=== PATIENT | female | born 1965 | race African-American/Black ===

== ENCOUNTER → 2019-05-30 | Outpatient (CLI) | payer OTHER ==
[~2019-05-30] MED LIST: APAP500 PO; ATIVAN1 MG; LOSARTAN POTAS100 MG PO; MEDROLDOSEPACK PO; PANTOPRAZOLE SO40 M1 PO; ROBAXIN 750 MG750 M1 PO; SYSTANE BALANCE10 ML OP; VITAMIN D2000 UNIT PO; ZPAK PO; [UNRECOGNIZED DRUG - OTHER] TP
== END ==
LOC: M.MRI 11:19
DX: S83.242A Other tear of medial meniscus, current injury, left knee, initial encounter (principal); S83.422A Sprain of lateral collateral ligament of left knee, initial encounter; M71.22 Synovial cyst of popliteal space [Baker], left knee; M17.12 Unilateral primary osteoarthritis, left knee; X58.XXXA Exposure to other specified factors, initial encounter; Y93.89 Activity, other specified; Y92.89 Other specified places as the place of occurrence of the external cause; Y99.8 Other external cause status

== ENCOUNTER → 2019-07-28 | Outpatient (CLI) | payer OTHER ==
[~2019-07-28] VITALS: Ht 170.2 cm; Wt 89.4 kg
[~2019-07-28] MED LIST changes: +AMLODIPINE BESY10 MG PO; +APPLE CIDER VI300 MG PO; +CELEXA 20 MG TA20 MG PO; +DIPHENHYDRAMINE25 M1 PO; +FLONASE 0.05%50 MCG NASAL; +HAIR, SKIN & N1 EAC2 PO; +HYDROCHLOROTHIA25 M2 PO; +HYDROCODON-ACE1 EAC7 PO; +LIPITOR10 MG PO; +MELOXICAM15 MG PO; +MICARDIS40 MG PO; +PROPRANOLOL 1010 M1 PO; +REFRESH RELIEVA10 M1 OPHTHALMIC; +ULTRAM 50MG TAB50 MG PO; -VITAMIN D2000 UNIT PO; +VITAMIN D34000 UNIT PO; -[UNRECOGNIZED DRUG - OTHER] TP; +[UNRECOGNIZED DRUG - SUPPLY] TOP
[2019-07-28 09:31] LABS: HEMOGLOBIN 15.7 gm/dL (12.0-15.0); MCH 29.1 pg (26.0-34.0); MCV 83.1 fL (80.0-100.0); RBC 5.41 mil/uL (4.20-5.00); RDW-CV 13.9 % (10.5-14.5); WBC 6.9 thou/uL (4.0-11.0)
[2019-07-28 09:44] LABS: ALBUMIN 4.1 g/dL (3.4-5.0); CALCIUM 8.9 mg/dL (8.5-10.1); CREATININE 0.8 mg/dL (0.6-1.3); POTASSIUM 4.2 mmol/L (3.5-5.1); TOTAL BILIRUBIN 0.4 mg/dL (<0.1-1.0); TOTAL PROTEIN 8.1 g/dL (6.4-8.2)
[2019-07-28 11:22] LABS: URINE BILIRUBIN NEGATIVE (Negative); URINE BLOOD NEGATIVE (Negative); URINE CLARITY CLEAR; URINE COLOR YELLOW; URINE GLUCOSE-RANDOM NEGATIVE (Negative); URINE KETONES NEGATIVE (Negative); URINE LEUKOCYTES-REFLEX NEGATIVE (Negative); URINE NITRITE-REFLEX NEGATIVE (Negative); URINE PROTEIN NEGATIVE (Negative); URINE UROBILINOGEN 0.2 E.U./dl (0.2-1.0)
--- NOTE | 2019-07-28 16:42 | EKG ---
[place] [address] ELECTROCARDIOGRAM REPORT Name: NEVILLE SCHMIDT Room: PRE IN [facility]#: [id number] Admission: Attend Phys: Fabio Chambers Discharge: Date of : 63 Date of Service: 07/28/19941 Report #: [id number] THIS REPORT FOR: //name// [facility] Test Date: 2019-07-28 Test Time: 09:42:54 Pat Name: NEVILLE BELLE Department: Room: Gender: F [employer]er: : 1965 Requested By: Chris Jenkins Order Number: [id number] Lashawn MD: Moy Velasquez Measurements Intervals [place] Rate: 69 P: 22 DC: 145 QRS: -26 QRSD: 83 T: 0 QT: 380 QTc: 407 Interpretive Statements Sinus rhythm Borderline left axis deviation Possible anteroseptal infarct, old No previous ECG available for comparison Electronically Signed On 07-28-2019 16:41:03 CDT by Moy Velasquez [email or web address] <ELECTRONICALLY SIGNED> By: Moy Velasquez MD, [facility] 07/28/19 1641 D: [id number] 1 Moy Velasquez MD, FACC /EPI
== END ==
LOC: M.LAB 08:00 → M.PRE 08-09 07:04 → EDSTATUS 08-09 09:02 → M.PRE 08-09 14:42
PROVIDERS: Orthopaedic Surgery
DX: M17.9 Osteoarthritis of knee, unspecified (principal); Z96.659 Presence of unspecified artificial knee joint

== ENCOUNTER 2019-11-22 07:32 | Inpatient (IN) | payer OTHER ==
[2019-11-16 10:44] LABS: HEMOGLOBIN 15.5 gm/dL (12.0-15.0); MCH 28.8 pg (26.0-34.0); MCHC 34.4 g/dL (28.0-37.0); MCV 83.7 fL (80.0-100.0); MPV 8.5 fl. (7.2-11.1); RBC 5.38 mil/uL (4.20-5.00); RDW-CV 14.4 % (10.5-14.5); WBC 8.7 thou/uL (4.0-11.0)
[2019-11-16 10:49] LABS: PROTIME 10.7 Seconds (9.20-11.50)
[2019-11-16 10:54] LABS: ALBUMIN 4.6 g/dL (3.4-5.0); CALCIUM 9.3 mg/dL (8.5-10.1); CREATININE 0.8 mg/dL (0.6-1.3); POTASSIUM 3.8 mmol/L (3.5-5.1); TOTAL BILIRUBIN 0.7 mg/dL (<0.1-1.0); TOTAL PROTEIN 8.6 g/dL (6.4-8.2)
[2019-11-16 10:59] LABS: URINE BILIRUBIN NEGATIVE (Negative); URINE BLOOD NEGATIVE (Negative); URINE CLARITY CLEAR; URINE COLOR YELLOW; URINE GLUCOSE-RANDOM NEGATIVE (Negative); URINE KETONES NEGATIVE (Negative); URINE LEUKOCYTES-REFLEX NEGATIVE (Negative); URINE NITRITE-REFLEX NEGATIVE (Negative); URINE PROTEIN NEGATIVE (Negative); URINE UROBILINOGEN 0.2 E.U./dl (0.2-1.0)
[~2019-11-22] VITALS: Ht 170.2 cm; Wt 89.4 kg
[~2019-11-22 07:32] MED LIST changes: +ACETAMINOPHEN500 M1 PO; -APAP500 PO; +VITAMIN D3100 MCG PO; -VITAMIN D34000 UNIT PO
[2019-11-22 09:30] VITALS: BP 111/64
--- NOTE | 2019-11-22 12:07 | EKG ---
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
[2019-11-22 15:00] VITALS: BP 95/59
--- NOTE | 2019-11-22 17:33 | NUR ---
PATIENT CAME TO THE FLOOR AT 1420 SHE HAD THE POLAR PACK TEDS AND FOOT PUMPS IN USE. HOB UP 30 DEGREES. SHE WAS COMPLAINING OF SOME PAIN BUT STATED THAT IT WAS TOLERABLE. SHE WAS FALLING ASLEEP WHILE TALKING AND I TOLD HER SHE NEEDED TO REST FOR A LITTLE WHILE. SHE IS ALERT AND ORIENTED AND THE DRESSING TO THE LEFT KNEE IS CLEAN DRY AND INTACT. CMS POSITIVE IN THE LEFT EXTREMITY. THE HEMOVAC TO THE KNEE IS NOT COMPRESSED AND THE DR. DOES NOT WANT IT COMPRESSED. I LEFT THE TOWEL UNDER HER KNEE FOR 2 HOURS ORDERED. SHE HAS BEEN UP WITH A WALKER TO THE [facility] X 2 AND IS VOIDING FREELY. SHE HAS BEEN VERY CONCERNED THAT SHE IS GOING TO GET INTO ALOT OF PAIN AND HAS BEEN WANTING HER PAIN MEDICATIONS GIVEN FREQUENTLY. I HAVE ADMINISTERED MORPHINE AND HYDROCODONE REQUESTED. I DID UPDATE THE BOARD TO WHEN HER NEXT PAIN MED IS DUE. NO DISTRESS NOTED THIS SHIFT. IV PATIENT AND FLUIDS INFUSING ORDERED. IS IN THE ROOM WITH HER UNTIL 7PM.
[2019-11-22 20:18] VITALS: BP 138/82
[2019-11-22 22:42] VITALS: BP 121/61
[2019-11-22 22:43] VITALS: BP 121/61
[2019-11-23] VITALS (7 sets, daily range): BP systolic 99–149; BP diastolic 50–78
--- NOTE | 2019-11-23 04:25 | NUR ---
PT A&OX4, ON 3L NC, VSS, CPM THERAPY USED, HEMO VAC IN PLACE, PAIN MEDS REQUESTED AND GIVEN ORDERED. ASSESSMENTS AND HOURLY ROUNDINGS COMPLETE. WILL CONTINUE WITH PLAN OF CARE.
[2019-11-23 05:05] LABS: HEMATOCRIT 36.3 % (37.0-47.0); HEMOGLOBIN 12.4 gm/dL (12.0-15.0)
--- NOTE | 2019-11-23 17:25 | NUR ---
PT.LIVES WITH HER . HE IS TAKING OFF WORK TO BE WITH HER FOR ABOUT 5 DAYS. THEY LIVE IN AN APT.THAT HAS ABOUT 14 STEPS TO GET UP TO APT. THERE IS A LANDING AFTER THE FIRST 7 STEPS. SHE HAS A FWW THAT WILL BRING TO HOSPITAL FOR THERAPY TO ADJUST AND STOOL RISER.SHE IS INDEPENDENT AT HOME. HAS TROUBLE WITH V[employer]IG[employer] AND FELL ABOUT 2 WEEKS AAGO. SHE WOULD LIKE TO USE [employer] AT DISCHARGE. CM CALLED IN XARELTO TO HER PHARMACY-[facility]. COPAY IS $46. SHE SAID IT IS HIGH BUT WILL PAY FOR IT. SHE PLANS TO DISCHARGE TOMORROW PENDING PROGRESS IN THERAPY. WILL FAX REFERRAL TO [facility].
--- NOTE | 2019-11-23 17:39 | NUR ---
PATIENT UP WITH THERAPY THIS SHIFT, GAIT BELT AND WALKER. POLAR YASEMIN IN PLACE TO LEFT KNEE. HEMOVAC DC'D THIS AM PER PROTOCOL. IV RESTARTED TO LEFT HAND THIS EVENING DUE TO LEAKING. PATIENT STATED THAT VICODIN AND OXY IR WERE NOT WORKING AND REQUESTED MORPHINE THIS SHIFT. PATIENT NOTIFIED THAT PO MEDS TO BE TRIED FIRST, PATIENT WAS GIVEN DOSE OF MORPHINE THIS EVENING. TOLERATING DIET.
[2019-11-24 04:01] LABS: HEMATOCRIT 32.2 % (37.0-47.0); HEMOGLOBIN 11.1 gm/dL (12.0-15.0)
--- NOTE | 2019-11-24 04:36 | NUR ---
PT A&OX4, ON ROOM AIR, VSS, PT UP WITH ASSIST, CPM THERAPY COMPLETED. PAIN MEDS REQUESTED AND GIVEN ORDERED. HOURLY ROUNDINGS COMPLETE. WILL CONTINUE TO MONITOR.
[2019-11-24 05:57] VITALS: BP 117/53
[2019-11-24 07:40] VITALS: BP 121/71
[2019-11-24 10:37] VITALS: BP 128/65
[2019-11-24] MEDS ORDERED: PERCOCET 5-3251 EACH PO (10:46)
[2019-11-24] MEDS ORDERED: XARELTO10 MG PO (10:47)
--- NOTE | 2019-11-24 11:26 | NUR ---
ASSUMED CARE OF PATIENT AT APPROX 0730. ASSESSMENT COMPLETED AND CHARTED. VSS ON ROOM AIR. PAIN MANAGED WITH ORAL PAIN MEDICATION. NO OTHER COMPLAINTS. PATIENT UP WITH WALKER AND GAIT BELT, PROGRESSING TOWARD GOALS WITH THERAPIES. PATIENT DISCHARGED AT 1120 WITH ALL PERSONAL BELONGINGS, PRESCRIPTION AND DISCHARGE INFORMATION.
--- NOTE | 2019-11-24 16:23 | NUR ---
PT.DISCHARGED EARLIER TODAY. FAXED REFERRAL INFORMAITON AND DISCHARGE ORDERS TO [facility] [phone]. THEIR PHONE NUMBER IS [phone].
--- NOTE | 2019-11-25 08:15 | OP ---
[facility] [address] [place] [address] OPERATIVE REPORT Name: NEVILLE SCHMIDT Room: [address] IN .R.#: [id number] Admission: 11/22/19 Attend Phys: Naomy Herndon Discharge: 11/24/19 Date of : 63 Report #: [id number] THIS REPORT FOR: //name// cc: Colleen Vann Tara DO ~ THIS REPORT FOR: //name// CC: Chris Chambers DATE OF SERVICE: 11/22/2019 PREOPERATIVE DIAGNOSIS: Left knee osteoarthritis. POSTOPERATIVE DIAGNOSIS: Left knee osteoarthritis. PROCEDURE: Left total knee arthroplasty. SURGEON: Chris Jenkins II, DO FR[employer] MEAT GRADER: OUSMANE Garza. ANESTHESIA: General endotracheal. ESTIMATED BLOOD LOSS: 100 mL. ANTIBIOTICS: Ancef preoperatively. DRAINS: Medium Hemovac. COMPLICATIONS: None. CONDITION OF THE PATIENT: Stable to recovery room. IMPLANTS: Listed in operative record and progress note. BRIEF HISTORY: The patient is seen in the preoperative area. Preoperative H and P was performed. Site was marked, questions were answered. Risks and benefits were discussed with the patient in detail about surgery. The patient wished to proceed, assuming all risks. DESCRIPTION OF PROCEDURE: The patient was taken to the operative suite and placed supine on the operating table, given appropriate anesthesia. A well-padded tourniquet was applied to the upper thigh, which was inflated to 300 mmHg after gravity exsanguination. The operative knee was sterilely prepped and [facility] [address] [place] [address] OPERATIVE REPORT Name: NEVILLE SCHMIDT Room: [address] IN M.R.#: [id number] Admission: 11/22/19 Attend Phys: Naomy Herndon Discharge: 11/24/19 Date of : 63 Report #: [id number] draped. Surgery began by midline incision. This was carried down to the subcutaneous tissues. A medial parapatellar arthrotomy was performed and carried down to bone. Patella was then everted and excess soft tissue was removed from around the femur. Femoral cutting block was then applied, checked with a drop gaurav for rotational alignment, pinned in appropriate position and appropriate cuts were made. A 4-in-1 cutting block was then applied, checked for rotational alignment, pinned in appropriate position and appropriate cuts were made. The tibia was then exposed. Excess meniscus was removed. Retractors were placed along the collateral ligaments. The tibial cutting block was then applied, pinned in appropriate position, checked with a drop gaurav for rotational alignment and slope and appropriate cut was made. The tibial bone was removed. The tibial base plate was then applied, checked for rotational alignment with the drop gaurav and pinned in appropriate position. The femur was then applied and box cut was reamed. This was trialed with appropriate spacer, which showed excellent fit and fill and excellent stability of knee through all range of motion. The patella was reamed in appropriate fashion and sized to appropriate size. Three peg holes were drilled and it was then trialed and showed excellent flexion, extension, excellent tracking of the patella within the groove. These trials were then removed. The tibia was punched in appropriate fashion. Bone ends were cleansed with Pulsavac irrigation and cement was mixed and applied to final implants. These were then malleted into position and held the knee in extension and compressed to allow cement to cure. After it cured, excess was removed utilizing [place] and osteotome. Wound was then copiously irrigated and the final spacer was then malleted into position. The tourniquet was deflated. Hemostasis was obtained with electrocautery. Pain cocktail was injected. PRP gel was sprayed throughout the internal aspects of the knee. Medium Hemovac drain was then applied. Capsule was then closed with 2 FiberWire and 1 Vicryl in [id number] fashion. There was some mild bleeding, which was cauterized utilizing Aquamantys as well as PRP and Enio powder. The skin was then closed utilizing a 2-0 Vicryl and running 3-0 Monocryl. Dermabond and sterile dressing applied. Herberth wrap and PolarCare applied. The patient transported to recovery room in stable condition. Counts were correct throughout the procedure. <ELECTRONICALLY SIGNED> By: Chris Jenkins II, DO 11/25/19 0815 2256Chris Jenkins II, DO /nt
--- NOTE | 2019-11-25 10:41 | NUR ---
LATE ENTRY-O.T. ORDERS RECIEVED 11/21 FOR 11/22. WILL DEFER TO P.T. AT THIS TIME. PLEASE ORDER FURTHER O.T. SERVICES IF NEEDED.
== END 2019-11-24 11:20 | disposition home health service (06) | DRG 470 ==
LOC: M.PRE 07:32 → M.ORTHSURG 08:50 → M.TBA 08:50 → M.PRE 13:49 → M.ORTHSURG 14:17 → M.PRE 20:17 → M.ORTHSURG 11-24 11:20
PROVIDERS: Orthopaedic Surgery; ADMIT Internal Medicine; ATTEND Internal Medicine
PROC: 0SRD0J9 Replacement of Left Knee Joint with Synthetic Substitute, Cemented, Open Approach (ICD-10-PCS; principal; 2019-11-22)
DX: M17.12 Unilateral primary osteoarthritis, left knee (principal); M25.461 Effusion, right knee; I10 Essential (primary) hypertension; K21.9 Gastro-esophageal reflux disease without esophagitis; E78.5 Hyperlipidemia, unspecified; Z88.0 Allergy status to penicillin; Z88.2 Allergy status to sulfonamides; Z91.040 Latex allergy status; Z90.49 Acquired absence of other specified parts of digestive tract